=== PATIENT | female | born 1950 | race Caucasian/White ===

== ENCOUNTER 2020-06-17 21:07 | Emergency (ER) | payer MEDICARE, OTHER ==
[2020-06-17 21:35] VITALS: BP 142/73; TEMP 97.9
[2020-06-17 21:58] VITALS: PULSE 99; RESP 18
--- NOTE | 2020-06-17 22:36 | CT ---
EXAMINATION TYPE: CT brain neela sierra con DATE OF EXAM: 06/17/2020 COMPARISON: None HISTORY: fall CT DLP: combined DLP 1138.6 mGycm Automated exposure control for dose reduction was used. Images of the brain and cervical spine were obtained without contrast. FINDINGS: There is subcutaneous hematoma over the frontal bone that measures 9 mm in thickness. The calvarium i s intact. Ventricles have normal size. There is no midline shift. There is no sign of intracranial he morrhage. The cervical vertebra have normal alignment. There is mild narrowing of cervical disc spaces. There i s no compression fracture. The posterior elements are intact. There is multilevel hypertrophic facet arthropathy. The prevertebral soft tissues are intact. Skull base appears intact. There is normal aer ation of the mastoid sinuses. IMPRESSION: Negative CT scan of the brain. Spondylotic changes in the cervical spine. No fracture. Frontal scalp hematoma.
--- NOTE | 2020-06-17 22:59 | CT ---
EXAMINATION TYPE: CT facial bones wo con DATE OF EXAM: 06/17/2020 COMPARISON: None HISTORY: fall CT DLP: combined DLP 1138.6 mGycm Automated exposure control for dose reduction was used. Images obtained from the bottom of the mandible to the top of the frontal sinuses without contrast. The mandibular ring is intact. Temporomandibular joints are intact. Zygomatic arches appear normal. M axilla is intact. There is small mucus retention cyst in the right maxillary sinus. There is no evide nce of a blowout fracture. Orbital margins are intact. There is no evidence of retro-orbital mass. Th ere is preseptal soft tissue swelling around both orbits. There is large frontal scalp hematoma measu ring up to 1 cm in thickness. There is fairly normal aeration of the paranasal sinuses. There is no e vidence of a fracture. Nasal bone appears intact. Frontal bone is intact. IMPRESSION: Periorbital soft tissue swelling. Frontal scalp hematoma. No fracture seen.
--- NOTE | 2020-06-17 23:31 | XR ---
EXAMINATION TYPE: XR humerus RT DATE OF EXAM: 06/17/2020 COMPARISON: NONE HISTORY: Bruising. Pain. TECHNIQUE: 2 views FINDINGS: There is comminuted fracture of the humeral neck. There is no dislocation. The scapula appe ars intact. Elbow joint appears intact. There is 11 mm displacement of the fracture. IMPRESSION: Comminuted humeral neck fracture with 11 mm displacement.
--- NOTE | 2020-06-17 23:33 | XR ---
EXAMINATION TYPE: XR shoulder complete RT DATE OF EXAM: 06/17/2020 COMPARISON: NONE HISTORY: Shoulder pain TECHNIQUE: 3 views FINDINGS: There is comminuted fracture of the humeral neck without dislocation. There is separation o f the fragments up to 15 mm. The scapula appears intact. Clavicle appears intact. IMPRESSION: Comminuted humeral neck fracture without dislocation.
[2020-06-18] MEDS ORDERED: ACET/COD 300 MG/30 MG STARTER PACK 6 TAB BTL PO STA (00:02)
--- NOTE | 2020-06-18 00:02 | ED ---
Fall HPI - General Chief Complaint: Fall Stated Complaint: Fell down Time Seen by Provider: 06/17/20 23:43 Source: patient Mode of arrival: wheelchair - Related Data Allergies Allergy/AdvReac Type Severity Reaction Status Date / Time Sulfa (Sulfonamide AdvReac Rash/Hives Verified 06/17/20 21:35 Antibiotics) Review of Systems ROS Statement: Those systems with pertinent positive or pertinent negative responses have been documented in the HPI. ROS Other: All systems not noted in ROS Statement are negative. Past Medical History Past Medical History: Hypertension History of Any Multi-Drug Resistant Organisms: None Reported Past Surgical History: No Surgical Hx Reported Past Psychological History: No Psychological Hx Reported Smoking Status: Never smoker Past Alcohol Use History: Occasional Past Drug Use History: None Reported General Exam Limitations: no limitations Course Vital Signs 06/17/20 21:32 Temperature 97.9 F Pulse Rate 99 Respiratory 18 Rate Blood Pressure 142/73 O2 Sat by Pulse 98 Oximetry Disposition Clinical Impression: Fall, Head injury, Right humeral fracture Disposition: HOME SELF-CARE Condition: Good Instructions (If sedation given, give patient instructions): Proximal Humerus Fracture (ED) Is patient prescribed a controlled substance at d/c from ED?: No Referrals: Paramjit Munguia DO [Doctor of Osteopathic Medicine] - 1-2 days Renato Munguia DO [Doctor of Osteopathic Medicine] - 1-2 days
== END 2020-06-18 00:22 | disposition home or self-care (01) ==
LOC: EDBD → EC 21:07
DX: S09.90XA Unspecified injury of head, initial encounter (principal); S42.201A Unspecified fracture of upper end of right humerus, initial encounter for closed fracture; I10 Essential (primary) hypertension; W18.30XA Fall on same level, unspecified, initial encounter
CPT/HCPCS: 70450; 70486; 72125; 99284

== ENCOUNTER → 2020-06-22 | Outpatient (CLI) | payer MEDICARE, OTHER ==
[2020-06-22 16:43] LABS: HCT 33.5 % (34.0-46.0); HGB 11.4 gm/dL (11.4-16.0); MCHC 34.2 g/dL (31.0-37.0); MCV 96.5 fL (80.0-100.0); Mean Platelet Volume 6.9; Platelet Count 278 k/uL (150-450); RBC 3.47 m/uL (3.80-5.40); RDW 12.6 % (11.5-15.5); WBC 9.2 k/uL (3.8-10.6)
[2020-06-22 16:44] LABS: Appearance,Urine Clear (Clear); Bilirubin,Urine Negative (Negative); Blood,Urine Negative (Negative); Color,Urine Yellow; Glucose,Urine (UA) Negative (Negative); Ketones,Urine Negative (Negative); Leukocyte Esterase,Urine Moderate (Negative); Mucus,Urine Rare /hpf; Nitrite,Urine Negative (Negative); PH, Urine 5.5 (5.0-8.0); Protein,Urine Negative (Negative); RBC,Urine 1 /hpf (0-5); Specific Gravity,Urine 1.017 (1.001-1.035); Squamous Epithelial Cell,Urine <1 /hpf (0-4); Urobilinogen,Urine <2.0 mg/dL (<2.0); WBC,Urine 4 /hpf (0-5)
[2020-06-22 16:48] LABS: Albumin 4.3 g/dL (3.5-5.0); Potassium 4.1 mmol/L (3.5-5.1); Total Protein 7.5 g/dL (6.3-8.2)
[2020-06-22 16:51] LABS: INR 0.9 (<1.2); Partial Thromboplastin Time 23.6 sec (22.0-30.0); Prothrombin Time 9.8 sec (9.0-12.0)
== END | disposition home or self-care (01) ==
LOC: LABWHC1 14:39
PROVIDERS: ATTEND Orthopaedic Surgery
DX: Z01.812 Encounter for preprocedural laboratory examination (principal); Z01.818 Encounter for other preprocedural examination
CPT/HCPCS: 80053; 81001; 85027; 85610; 85730; 87070

== ENCOUNTER → 2020-07-03 | Day surgery (SDC) | payer MEDICARE, OTHER ==
[2020-06-26 10:25] VITALS: BMI 24.3
[~2020-07-03] MED LIST: ACETAMINOPHEN TAB 500 MG TAB PO PRN; DEXAMETHASONE SOD PHOSPHATE 4 MG/ML 1 ML VIAL IV ONE; GABAPENTIN 300 MG CAP PO PRN; HYDROcodone/APAP 7.5-325MG 1 EACH TAB PO PRN; HYDROmorphone 0.2 MG/1 ML SYRINGE IVP PRN; HYDROmorphone 0.5 MG/0.5 ML SYRINGE IVP PRN; HYDROmorphone 1 MG/ML 1 ML SYRINGE IVP PRN; LACTATED RINGERS 1,000 ML IV ONE; LACTATED RINGERS 1,000 ML IV SCH; LIDOCAINE 1% (10MG/ML) FOR IV START INTRADERMA PRN; MELOXICAM 7.5 MG TAB PO PRN; MIDAZOLAM 2 MG/2 ML VIAL IV PRN; ONDANSETRON 4 MG/2 ML VIAL IVP ONE; ONDANSETRON 4 MG/2 ML VIAL IVP PRN; SODIUM CHLORIDE 0.9% 1,000 ML IV SCH; TRANEXAMIC ACID 1,000 MG in SODIUM CHLORIDE 0.9% 100 ML IVPB PRN; ceFAZolin 1,000 MG in SODIUM CHLORIDE 0.9% 1,000 ML IRRIGATION ONE; fentaNYL (PF) 50 MCG/ML 2 ML AMP IVP PRN
--- NOTE | 2020-07-03 09:10 | P.OP ---
Date of Procedure: 07/03/20 Preoperative Diagnosis: Comminuted and displaced fracture right proximal humerus surgical neck Postoperative Diagnosis: Comminuted and displaced fracture surgical neck right proximal humerus Procedure(s) Performed: Reverse total shoulder arthroplasty Implants: Biomet comprehensive shoulder system, standard humeral stem, 12 mm porous- coated. Biomet comprehensive reverse shoulder system, humeral bearing, 36 mm, standard Biomet comprehensive reverse shoulder system, mini humeral tray, 40 mm, +0 mm, standard Biomet comprehensive reverse shoulder, Glenosphere mini baseplate, 25 mm Biomet comprehensive reverse shoulder, central screw, 6.5 mm x 25 mm Biomet comprehensive reverse shoulder, fixed locking screw, 4.75 x 20 mm, 15 mm, 15 mm, 20 mm. Biomet comprehensive reverse shoulder glenosphere, 36 mm, standard All components were press-fit. Articulation is metal on polyethylene. Anesthesia: GETA Surgeon: Renato Munguia Migrant Leader #1: Lisa Womack Estimated Blood Loss (ml): 50 Pathology: other (Humeral head) Condition: stable Disposition: PACU Indications for Procedure: This is a 70-year-old female missed a step at home and fell onto her right shoulder. She sustained a displaced comminuted fracture of the right surgical neck of the humerus. Due to the significant displacement and comminution I recommended a reverse total shoulder arthroplasty. This was discussed at length with her and informed consent was obtained. Operative Findings: Operative findings are consistent with a displaced comminuted fracture of the surgical neck of the right proximal humerus. Description of Procedure: The patient was seen in the preoperative area, consent was reviewed, and operative site was marked with a skin marker. Patient was then brought to the operating room and given preoperative antibiotics intravenously. Patient was also given 1 g of Tranexamic acid intravenously. A general anesthetic was administered by the anesthesia department. The patient was then placed in a beachchair position with the bony prominences well-padded and the head secured. The shoulder was then prepped and draped in the usual sterile fashion. A universal timeout was then performed, which confirmed the patient's name, surgical site, ALLERGIES, and consent. A standard deltopectoral approach was performed. The skin and subcutaneous tissue was sharply dissected down to the deltoid fascia. The cephalic vein was then identified and retracted medially. The deltopectoral interval was then utilized to expose the subscapularis tendon. A retractor was then placed under the coracobrachialis tendon retracted medially, and the deltoid. The axillary nerve is palpated and protected throughout the procedure. The subscapularis tendon was then released and retracted medially. The humeral head was then exposed easily. The humeral head was found to be 100% displaced from the proximal humerus. Was also found to be rotated 180 from its normal position. The humeral head was then removed. Next the humeral stem was prepared. Using a ruler, the depth of the stem was measured with respect to the humeral head which was removed. This measurement was used throughout preparation of the humeral component. A starter reamer was then placed through the humeral head along the axis of the humeral shaft just lateral to the articular surface and just medial to the rotator cuff attachment. Sequential reaming was performed to the appropriate size reamer was inserted to the #between the 3 and 4 on the reamer. Next the intramedullary resection guide was placed on the reamer shaft. It was placed to the appropriate resection depth and angle of 30 of retroversion. Resection guide block was then secured with Steinmann pins. The proximal humerus was then resected. The block was then removed and the humerus was then broached sequentially to the same size as the reamer. After the broaches fully seated, the broach handle was removed and a broach cover was placed protect the humerus while the glenoid was prepared. Next attention was directed to the glenoid. The appropriate retractors were placed around the glenoid and any remaining soft tissues was removed from around the glenoid. After the glenoid was adequately exposed, the threaded glenoid guide was placed onto the glenoid and a 3.2 mm Steinmann pin was inserted in the glenoid at the desired angle and position, ensuring the pin engaged medial cortical wall. Next, the cannulated baseplate reamer was placed over the top of the Steinmann pin. The glenoid was then reamed to the appropriate depth. The glenoid reamer was then removed, leaving the Steinmann pin. The glenoid Keny plate implant was placed on the end of the cannulated baseplate impactor. The baseplate was then impacted fully into the glenoid. Next the 6.5 mm central screw was then placed which afforded excellent fixation. The 4 peripheral locking screws were then drilled measured and placed. Next the appropriate glenosphere was opened and impacted into the glenoid baseplate. Attention was then redirected to the humerus. Next a trial humeral tray was placed in the shoulder was reduced. Shoulder was taken through a full range of motion and found to be stable. The shoulder was then gently dislocated, and the trial humerus and humeral tray were removed. The final humeral stem was impacted in the final humeral tray was impacted as well. Shoulder was then relocated. Again the shoulder was taken through a range of motion and found to have no instability. Shoulder was then irrigated with pulsatile lavage. The shoulder was then irrigated with Irrisept solution. The subscapularis was then repaired with #1 Vicryl. The deltopectoral interval was then closed with #1 Vicryl as well. The subcutaneous tissues were closed with 2-0 Vicryl then 30 strata fix. Exofin glue was placed on the skin. A sterile silver impregnated dressing was then applied, the patient was transported to the recovery room in an arm sling in stable condition. The nursing assistant DARRYN Chappell was required due the complexity of surgery and the need for a skilled surgical services director.
[2020-07-03 09:13] VITALS: TEMP 97.6
--- NOTE | 2020-07-03 10:51 | P.ANPRN ---
Procedure Note - Anesthesia - Nerve Block Performed Right Interscalene Single Time Out Performed: Yes Date of Procedure: 07/03/20 Procedure Start Time: Procedure Stop Time: Location of Patient: PreOp Indication: Requested by Surgeon Specifically requested for management of pain by DrGia: Renato Munguia Sedation Type: Sedate with meaningful contact maintained Preparation: Sterile Prep Position: Supine Needle Types: Pajunk Needle Gauge: 21 Ultrasound used to visualize needle placement: Yes Ultrasound used to observe medication spread: Yes Injectate: 0.5% Ropivacaine (see comment for volume) (20 ml) Blood Aspirated: No Pain Paresthesia on Injection Noted: No Resistance on Injection: Normal Image Stored and Saved: Yes Events: Uneventful and Well Tolerated
[2020-07-03 11:27] VITALS: RESP 16
[2020-07-03 13:00] VITALS: BP 129/76; PULSE 89
--- NOTE | 2020-07-03 13:16 | XR ---
EXAMINATION TYPE: XR shoulder limited RT DATE OF EXAM: 07/03/2020 COMPARISON: NONE HISTORY: Postop TECHNIQUE: One view is submitted. FINDINGS: Postsurgical change noted. Tubing or drain overlying the soft tissues. Soft tissue edema and emphysem a noted. Postsurgical change in near anatomic alignment. Arthropathy of the AC joint. IMPRESSION: 1. Postoperative change
== END | disposition home or self-care (01) ==
LOC: OR 05:31
PROVIDERS: ATTEND Orthopaedic Surgery
DX: S42.211A Unspecified displaced fracture of surgical neck of right humerus, initial encounter for closed fracture (principal); M19.011 Primary osteoarthritis, right shoulder; I10 Essential (primary) hypertension; E78.5 Hyperlipidemia, unspecified; M17.0 Bilateral primary osteoarthritis of knee; H35.30 Unspecified macular degeneration; Z79.899 Other long term (current) drug therapy; Z88.2 Allergy status to sulfonamides; X58.XXXA Exposure to other specified factors, initial encounter
CPT/HCPCS: 64415; 76942; 88305; 88311; 73020; 23472; C1713; C1776; J1100; J0690 ×2; J2405

== ENCOUNTER 2022-01-16 09:47 | Emergency (ER) | payer MEDICARE, OTHER ==
[2022-01-16 09:59] VITALS: RESP 18
--- NOTE | 2022-01-16 10:35 | ED ---
General Adult HPI - General Chief complaint: Syncope Stated complaint: fall Time Seen by Provider: 01/16/22 10:06 Source: patient, RN notes reviewed, old records reviewed Mode of arrival: ambulatory Limitations: no limitations - History of Present Illness Initial comments: 71-year-old female presents to the emergency room with complaints of syncopal episode while she was choking on coffeecake and water. Patient states that she was sitting and fell forward hitting her face on a whiteboard shelf. She states that she woke up to staff around her with a bloody nose. Denies any chest pain or difficulty in breathing. Denies any other injuries. She states that she was not down for a long period of time. Has history of hypertension no other medical problems. She is ambulatory with steady gait. -: hour(s) Location: face Radiation: non-radiation Severity scale (1-10): 6 Quality: aching Consistency: constant Improves with: none Worsens with: none Associated Symptoms: denies other symptoms Treatments Prior to Arrival: none - Related Data Home Medications Medication Instructions Recorded Confirmed Atorvastatin [Lipitor] 20 mg PO DAILY 06/27/20 06/27/20 Cholecalciferol [Vitamin D3 (25 25 mcg PO DAILY 06/27/20 06/27/20 Mcg = 1000 Iu)] Lisinopril-Hctz 20-25 mg 1 tab PO QAM 06/27/20 06/27/20 [Zestoretic 20-25] Vit C/E/Zn/Coppr/Lutein/Zeaxan 1 each PO BID 06/27/20 06/27/20 [Preservision Areds 2 Softgel] Previous Rx's Medication Instructions Recorded Celecoxib [CeleBREX] 200 mg PO DAILY 5 Days #5 capsule 07/03/20 HYDROcodone/APAP 7.5-325MG [Galloway 1 - 2 tab PO Q6H PRN #32 tab 07/03/20 7.5-325] Ondansetron Odt [Zofran Odt] 1 tab PO Q8HR PRN #10 tab 07/03/20 Sennosides [Senokot] 2 tab PO DAILY PRN #60 tablet 07/03/20 Allergies Allergy/AdvReac Type Severity Reaction Status Date / Time Sulfa (Sulfonamide AdvReac Rash/Hives Verified 01/16/22 09:59 Antibiotics) Patient : No Review of Systems ROS Statement: Those systems with pertinent positive or pertinent negative responses have been documented in the HPI. ROS Other: All systems not noted in ROS Statement are negative. Past Medical History Past Medical History: Hypertension History of Any Multi-Drug Resistant Organisms: None Reported Past Surgical History: Orthopedic Surgery Past Psychological History: No Psychological Hx Reported Smoking Status: Never smoker Past Alcohol Use History: Occasional Past Drug Use History: None Reported General Exam Limitations: no limitations General appearance: alert, in no apparent distress Head exam: Present: normocephalic Expanded Head exam: Present: abrasion (nose), contusion (nose), hematoma (left eye). Absent: tenderness of temporal artery, CSF rhinorrhea, CSF otorrhea Eye exam: Present: normal appearance, EOMI. Absent: scleral icterus, conjunctival injection ENT exam: Present: normal exam, normal oropharynx, mucous membranes moist Neck exam: Present: normal inspection, full ROM. Absent: tenderness, meningismus, lymphadenopathy, thyromegaly Respiratory exam: Absent: respiratory distress, accessory muscle use Cardiovascular Exam: Present: regular rate Extremities exam: Present: full ROM, normal capillary refill. Absent: tenderness, pedal edema, calf tenderness Neurological exam: Present: alert, oriented X3, CN II-XII intact, normal gait Psychiatric exam: Present: normal affect, normal mood Skin exam: Present: warm, dry. Absent: cyanosis, diaphoretic, pallor, mottled Course Vital Signs 01/16/22 01/16/22 09:54 12:43 Temperature 98 F 97.6 F Pulse Rate 77 78 Respiratory 18 18 Rate Blood Pressure 165/77 124/66 O2 Sat by Pulse 99 99 Oximetry EKG Findings - EKG Results: EKG: sinus rhythm (Ventricular rate 66, ME interval 0.187, QRS 0.102, QTC 0.391; normal axis; no old to compare) Medical Decision Making - Medical Decision Making Patient presents to the emergency room after a syncopal episode after coughing/choking spell this morning. States fell forward from sitting hitting her face on a shelf. Denies any dizziness, chest pain or difficulty breathing. Denies any other injuries. CT facial bones shows an acute nondisplaced right nasal bone fracture with soft tissue swelling. CT brain and C-spine show no acute intracranial abnormality. No fracture or malalignment of the cervical spine. Chest x-ray shows no acute cardiopulmonary process. EKG shows sinus rhythm Vital signs are stable. Patient is up ambulating with steady gait. No other complaints of pain or discomfort. She was offered pain medication and declined. She was instructed to use ice and Tylenol and Motrin for pain and swelling. Nasal saline spray and follow up with ENT and her primary care doctor this week. She is agreeable to this plan of care. Case discussed with Dr. Estrada Disposition Clinical Impression: Vasovagal syncope, Nasal bone fracture Disposition: HOME SELF-CARE Condition: Good Instructions (If sedation given, give patient instructions): Nasal Fracture (ED), Syncope in Older Adults (ED) Additional Instructions: Take Tylenol as needed for pain or discomfort. Ice to decrease swelling. Follow-up with Dr. Goodman for continuation of care of the nasal bone fracture. Use nasal saline throughout the day. Do not blow your nose. If bleeding recurs hold for pressure for 15 minutes. If unable to control bleeding return to the emergency room. Return to the emergency room with any new or concerning symptoms. Is patient prescribed a controlled substance at d/c from ED?: No Referrals: Brii Gaxiola III, MD [Primary Care Provider] - 1-2 days Rudy Goodman MD [STAFF PHYSICIAN] - 1-2 days Time of Disposition: 12:01
--- NOTE | 2022-01-16 11:32 | CT ---
EXAMINATION TYPE: CT facial bones wo con CT DLP: Included in brain mGycm, Automated exposure control for dose reduction was used. DATE OF EXAM: 01/16/2022 11:08 AM COMPARISON: CT facial bones 06/17/2020. CLINICAL INDICATION:Female, 71 years old with history of fall face injury; PHH, Fall, bruising to lef t cheek and nose TECHNIQUE: Multiple unenhanced axial CT images were obtained of the facial bones soft tissue and bone windows. Coronal, axial and sagittal reformatted images were also provided in soft tissue and bone windows and submitted for interpretation. FINDINGS: Dental amalgam streak artifact which limits evaluation. Nondisplaced right nasal bone fracture (series 211, image 21). Soft tissue swelling of the left cheek and nose. The orbital contents are intact. Both lenses are surgical absent. The temporal-mandibular joints appear symmetric. The visualized portion of the paranasal sinuses appear clear. Nasal septal deviation to the right. IMPRESSION: 1. Acute nondisplaced right nasal bone fracture. 2. Left cheek and nasal soft tissue swelling.
--- NOTE | 2022-01-16 11:34 | XR ---
EXAMINATION TYPE: XR chest 2V DATE OF EXAM: 01/16/2022 COMPARISON: NONE HISTORY: Syncope after choking TECHNIQUE: Frontal and lateral views of the chest are obtained. FINDINGS: Patient is rotated. There is no focal air space opacity, pleural effusion, or pneumothorax seen. The cardiac silhouette size is within normal limits. The osseous structures are intact, post op change noted to the right shoulder with some acromioclavicular joint arthropathy bilaterally, thor acic spondylosis is noted. IMPRESSION: No acute cardiopulmonary process.
--- NOTE | 2022-01-16 11:34 | CT ---
EXAMINATION TYPE: CT brain neela sierra con DATE OF EXAM: 01/16/2022 COMPARISON: 06/17/2020 HISTORY: 71-year-old female Fall, bruising to left cheek and nose CT DLP: 976.3 mGycm Automated exposure control for dose reduction was used. Technique: Examination of the head was done in axial plane without intravenous contrast. Coronal and sagittal reconstructions performed. CT of the cervical spine was obtained in axial plane without intravenous injection of contrast mater ial. Coronal and sagittal reformatted images were obtained from the axial views for evaluation of f ractures, spinal alignment and canal. FINDINGS: Head: There is no evidence of acute intracranial hemorrhage, acute ischemic changes, mass, mass-effect, or extra-axial fluid collection. There is no effacement of cerebral sulci or basal subarachnoid cister ns. There is no hydrocephalus. There is no midline shift. Lomeli-white matter distinction is preserv ed. Benign basal ganglionic calcifications. Mild periventricular white matter hypodensities suggesting ch anges of chronic small vessel ischemic disease. Mastoid air cells well pneumatized. No calvarial fracture seen. Facial bones reported separately. Right-sided nasal bone fracture will be described separately. Cervical spine: No craniocervical junction abnormality, predental space widening, or prevertebral soft tissue swellin g. Degenerative change of the C1 dens articulation. There is preserved alignment of the cervical spine though with straightening of the normal cervical l ordosis. Moderate distention plate degenerative changes present from C3 through T1 levels with disc space narr owing and discussed by complex formation. This contributes to variable mild spinal canal narrowing throughout. Assessment of the spinal canal f rom C6 and below is limited due to artifact from the patient's shoulders. Scattered facet and uncovertebral joint arthropathy is also present. No acute fracture of the cervical spine. At C3-C4, changes result in mild right neuroforaminal stenosis. At C4-C5, change result in [id number] bilateral neural foraminal narrowing. At C5-C6 foraminal changes result in moderate to severe left and moderate right neural foraminal sten osis. At C6-C7, T1 result in moderate left and mild right neuroforaminal stenosis. Sagittal and coronal reformatted images confirm above findings. COMBINED IMPRESSION: 1. No acute intracranial abnormality seen. 2. No acute fracture or malalignment of the cervical spine. Moderate spondylotic change as outlined a isai. 3. Facial bones reported separately.
[2022-01-16] MEDS ORDERED: ACETAMINOPHEN TAB 500 MG TAB PO STA (12:00)
[2022-01-16 12:45] VITALS: BP 124/66; PULSE 78; TEMP 97.6
== END 2022-01-16 12:44 | disposition home or self-care (01) ==
LOC: EC 09:47
DX: S02.2XXA Fracture of nasal bones, initial encounter for closed fracture (principal); R55 Syncope and collapse; I10 Essential (primary) hypertension; Z88.2 Allergy status to sulfonamides; Z79.899 Other long term (current) drug therapy; W01.198A Fall on same level from slipping, tripping and stumbling with subsequent striking against other object, initial encounter
CPT/HCPCS: 70450; 70486; 71046; 72125; 99284

== ENCOUNTER 2022-04-19 13:46 | Emergency (ER) | payer MEDICARE, OTHER ==
[2022-04-19] MEDS ORDERED: KETOROLAC 15 MG/ML 1 ML VIAL IM STA (14:13)
--- NOTE | 2022-04-19 14:14 | ED ---
General Adult HPI - General Chief complaint: Fall Stated complaint: fall Time Seen by Provider: 04/19/22 14:05 Source: patient, family, RN notes reviewed Mode of arrival: ambulatory Limitations: no limitations - History of Present Illness Initial comments: 71-year-old female with no significant past medical history presents to the emergency Department chief complaint of fall. She notes that she was walking on the sidewalk and tripped on the curb and fell onto her face. She denies any loss of consciousness or anticoagulant use. She denies any dizziness, lightheadedness, headache, vision changes, chest pain, palpitations, shortness of breath. She has not taken anything for the pain. - Related Data Home Medications Medication Instructions Recorded Confirmed Lisinopril-Hctz 20-25 mg 1 tab PO DAILY 06/27/20 04/19/22 [Zestoretic 20-25] Vit C/E/Zn/Coppr/Lutein/Zeaxan 1 cap PO BID 06/27/20 04/19/22 [Preservision Areds 2 Softgel] Naproxen Sodium [Aleve] 220 mg PO BID 04/19/22 04/19/22 Allergies Allergy/AdvReac Type Severity Reaction Status Date / Time Sulfa (Sulfonamide AdvReac Rash/Hives Verified 04/19/22 15:10 Antibiotics) Review of Systems ROS Statement: Those systems with pertinent positive or pertinent negative responses have been documented in the HPI. ROS Other: All systems not noted in ROS Statement are negative. Past Medical History Past Medical History: Hypertension History of Any Multi-Drug Resistant Organisms: None Reported Past Surgical History: Orthopedic Surgery Past Psychological History: No Psychological Hx Reported Smoking Status: Never smoker Past Alcohol Use History: Occasional Past Drug Use History: None Reported General Exam Limitations: no limitations General appearance: alert, in no apparent distress Head exam: Present: atraumatic, normocephalic, normal inspection Eye exam: Present: normal appearance, PERRL, EOMI. Absent: scleral icterus, conjunctival injection, periorbital swelling ENT exam: Present: normal exam, mucous membranes moist Neck exam: Present: normal inspection. Absent: tenderness, meningismus, lymphadenopathy Respiratory exam: Present: normal lung sounds bilaterally. Absent: respiratory distress, wheezes, rales, rhonchi, stridor Cardiovascular Exam: Present: regular rate, normal rhythm, normal heart sounds. Absent: systolic murmur, diastolic murmur, rubs, gallop, clicks GI/Abdominal exam: Present: soft, normal bowel sounds. Absent: distended, tenderness, guarding, rebound, rigid Extremities exam: Present: normal inspection, full ROM, normal capillary refill. Absent: tenderness, pedal edema, joint swelling, calf tenderness Back exam: Present: normal inspection Neurological exam: Present: alert, oriented X3, CN II-XII intact Psychiatric exam: Present: normal affect, normal mood Skin exam: Present: warm, dry, intact, normal color. Absent: rash Course Vital Signs 04/19/22 04/19/22 04/19/22 13:56 14:25 16:09 Temperature 97.5 F L 97.9 F Pulse Rate 72 61 75 Respiratory 20 18 18 Rate Blood Pressure 134/72 104/66 110/70 O2 Sat by Pulse 100 100 98 Oximetry Medical Decision Making - Medical Decision Making Was pt. sent in by a medical professional or institution (, PA, SLIPMAN, urgent care, hospital, or custodial...) When possible be specific @ -[No] Did you speak to anyone other than the patient for history (EMS, parent, family, police, friend...)? What history was obtained from this source @ -[No] Did you review nursing and triage notes (agree or disagree)? Why? @ -[I reviewed and agree with nursing and triage notes] Were old charts reviewed (outside hosp., previous admission, EMS record, old EKG, old radiological studies, urgent care reports/EKG's, custodial records)? Report findings @ -[No old charts were reviewed] Differential Diagnosis (chest pain, altered mental status, abdominal pain women, abdominal pain men, vaginal bleeding, weakness, fever, dyspnea, syncope, headache, dizziness, GI bleed, back pain, seizure, CVA, palpatations, mental health)? @ -[not applicable] EKG interpreted by me (3pts min.). @ -[As above] X-rays interpreted by me (1pt min.). @ -[None done] CT interpreted by me (1pt min.). @ -Negative for any intracranial hemoorrhage, however reveals a septal bone fracture. U/S interpreted by me (1pt. min.). @ -[None done] What testing was considered but not performed or refused? (CT, X-rays, U/S, labs)? Why? @ -[None] What meds were considered but not given or refused? Why? @ -[None] Did you discuss the management of the patient with other professionals (professionals i.e. , PA, SLIPMAN, lab, RT, psych nurse, neonatal social worker, family lawyer, teacher, special officer, major case detective)? Give summary @ -[No] Was smoking cessation discussed for >3mins.? @ -[No] Was critical care preformed (if so, how long)? @ -[No] Were there social determinants of health that impacted care today? How? (Homelessness, low income, unemployed, alcoholism, drug addiction, transportation, low edu. Level, literacy, decrease access to med. care, long term, re hab)? @ -[No] Was there de-escalation of care discussed even if they declined (Discuss DNR or withdrawal of care, Hospice)? DNR status @ -[No] What co-morbidities impacted this encounter? (DM, HTN, Smoking, COPD, CAD, Cancer, CVA, ARF, Chemo, Hep., AIDS, mental health diagnosis, sleep apnea, morbid obesity)? @ -[None] Was patient admitted / discharged? Hospital course, mention meds given and route, prescriptions, significant lab abnormalities, going to OR and other pertinent info. @ -71-year-old female presents to the emergency department with fall. Patient had a thorough history and physical performed. Physical exam reveals heart rate regular rate and rhythm, lungs clear to auscultation bilaterally abdomen is soft and nontender. Her incision sites appear well healed. . imaging was essentially unremarkable with septum fracture. I discussed the results in detail with the patient, patient verbalized understanding and all questions were addressed. Return precautions were discussed. She follow-up with her primary care in 1-2 days and given a referral for Dr. Goodman, ENT. The patient was discharged in stable condition. I discussed the case with Dr. Goins Cynthia who agrees with the plan of care Undiagnosed new problem with uncertain prognosis? @ -[No] Drug Therapy requiring intensive monitoring for toxicity (Heparin, Nitro, Insulin, Cardizem)? @ -[No] Were any procedures done? @ -[No] Diagnosis/symptom? @ -nasla bone fx Acute, or Chronic, or Acute on Chronic? @ -acute Uncomplicated (without systemic symptoms) or Complicated (systemic symptoms)? @ -uncomplicated Side effects of treatment? @ -[No] Exacerbation, Progression, or Severe Exacerbation? @ -[No] Poses a threat to life or bodily function? How? (Chest pain, [place], [place], pneumonia, PE, COPD, DKA, ARF, appy, cholecystitis, CVA, Diverticulitis, Homicidal, Suicidal, threat to staff... and all critical care pts) @ -[No] Disposition Clinical Impression: Fall, Contusion, Abrasion of face Disposition: HOME SELF-CARE Condition: Stable Instructions (If sedation given, give patient instructions): Abrasion (ED), Fall Prevention (ED) Additional Instructions: Return to the nearest emergency department if symptoms worsen or persist. Is patient prescribed a controlled substance at d/c from ED?: No Referrals: Brii Gaxiola III, MD [Primary Care Provider] - 1-2 days Rudy Goodman MD [STAFF PHYSICIAN] - 1-2 days Time of Disposition: 15:51
[2022-04-19 14:26] VITALS: RESP 18
--- NOTE | 2022-04-19 15:24 | CT ---
EXAMINATION TYPE: CT facial bones wo con CT DLP: Combined DLP of 1149.9 mGycm, Automated exposure control for dose reduction was used. DATE OF EXAM: 04/19/2022 3:00 PM COMPARISON: CT head and cervical spine 04/19/2022, CT facial bone 01/16/2022, CT brain cervical spine 01/16/2022. CLINICAL INDICATION:Female, 71 years old with history of fall; [facility], Fall on ice. Abrasion on nose and hematoma on forehead. No LOC. TECHNIQUE: Multiple unenhanced axial CT images were obtained of the facial bones soft tissue and bone windows. Coronal, axial and sagittal reformatted images were also provided in soft tissue and bone windows and submitted for interpretation. FINDINGS: Redemonstration of rightward displacement of the septum (series 207, image 56), however there is new onset of edema within the nasal turbinates. No additional acute facial bone fractures, subluxations o r dislocations noted. Left frontal scalp hematoma present. The orbital contents are unremarkable.Bronwyn gical absence of the lenses bilaterally. The temporal-mandibular joints appear symmetric. The visuali zed portion of the paranasal sinuses appear clear. IMPRESSION: 1. Edematous appearance of the nasal turbinates with rightward deviation of the nasal septum, concern ing for acute on chronic nasal septum fracture. 2. Left frontal scalp hematoma.
--- NOTE | 2022-04-19 15:24 | CT ---
EXAMINATION TYPE: CT brain cspine wo con CT DLP: Combined DLP of 1149.9 mGycm, Automated exposure control for dose reduction was used. DATE OF EXAM: 04/19/2022 3:00 PM COMPARISON: CT facial bone 04/19/2022, CT facial bone 01/16/2022, CT brain and cervical spine 01/17/20 22. CLINICAL INDICATION:Female, 71 years old with history of fall; fall on ice. Abrasion on nose and agustin yamile on forehead. No LOC. TECHNIQUE: Brain: Multiple axial CT images of the brain were obtained without IV contrast. Cspine: Axial CT images from the skull base to the inferior aspect of T2 we obtained without intraven ous contrast. Coronal and sagittal reformatted images were also reviewed. FINDINGS: Brain: Extra-axial spaces: No abnormal extra-axial fluid collections. Ventricular system: Within normal limits Cerebral parenchyma: No acute intraparenchymal hemorrhage or mass effect. The flores-white junction is well differentiated. Cerebellum: Unremarkable. Mass effect: No evidence of midline shift. Intracranial vasculature: Atherosclerotic calcifications of the intracranial vessels. Soft tissues: Left frontal scalp hematoma and surrounding soft tissue swelling series 201, image 21). Calvarium/osseous structures: No depressed skull fracture. Paranasal sinuses and mastoid air cells: Rightward deviation of the nasal septum with edematous appea johnna of the nasal turbinates (series 205, image 10) Visualized orbits: Bilateral aphakia Cervical spine: Fracture: None. Osseous structures: Unremarkable Vertebral alignment: Within normal limits. Spinal canal/Neural Foramina: Disc osteophyte complexes at C3-C4, C4-C5 and C5-C6 with at least mild spinal canal stenosis. Facet joint uncovertebral joint arthropathy scattered throughout the cervical spine with varying degrees of neural foraminal stenosis. Neck soft tissues: Prevertebral soft tissues are within normal limits. Other: The airway is patent. The lung apices are clear. IMPRESSION: 1. No acute intracranial process or cervical spine fracture. 2. Left frontal scalp hematoma. 3. Edematous nasal turbinates with rightward deviation of nasal septum concerning for acute on chroni c fracture. 4. Mild degenerative changes of the cervical spine
[2022-04-19 16:11] VITALS: BP 110/70; PULSE 75; TEMP 97.9
== END 2022-04-19 16:11 | disposition home or self-care (01) ==
LOC: EC 13:46
DX: S00.03XA Contusion of scalp, initial encounter (principal); S00.31XA Abrasion of nose, initial encounter; J34.2 Deviated nasal septum; M47.812 Spondylosis without myelopathy or radiculopathy, cervical region; I10 Essential (primary) hypertension; Z79.899 Other long term (current) drug therapy; Z88.2 Allergy status to sulfonamides; W01.0XXA Fall on same level from slipping, tripping and stumbling without subsequent striking against object, initial encounter; Y93.01 Activity, walking, marching and hiking; Y92.480 Sidewalk as the place of occurrence of the external cause
CPT/HCPCS: 70450; 70486; 72125; 99284

== ENCOUNTER → 2023-04-04 | Outpatient (CLI) | payer MEDICARE, OTHER ==
[2023-04-04 09:30] LABS: INR 0.9 (<1.2); Partial Thromboplastin Time 25.9 sec (22.0-30.0); Prothrombin Time 10.1 sec (10.0-12.5)
[2023-04-04 13:56] LABS: HCT 41.6 % (37.2-46.3); HGB 13.5 g/dL (12.0-15.0); MCH 31.7 pg (27.0-32.0); MCHC 32.5 g/dL (32.0-37.0); MCV 97.7 FL (80.0-97.0); Mean Platelet Volume 9.8 FL (9.5-12.2); NRBC Per 100 WBC 0 X 10*3/uL (0.00-0.01); Platelet Count 280 X 10*3/uL (140-440); RBC 4.26 X 10*6/uL (4.10-5.20); RDW 13.2 % (11.5-14.5); WBC 5.76 X 10*3/uL (4.50-10.00)
[2023-04-04 14:06] LABS: ALT 12 U/L (8-44); AST 19 U/L (13-35); Albumin 4.6 g/dL (3.8-4.9); Albumin/Globulin Ratio 1.59 Ratio (1.60-3.17); Alkaline Phosphatase 69 U/L (41-126); BUN/Creat Ratio 34.56 Ratio (12.00-20.00); Blood Urea Nitrogen 31.1 mg/dL (9.0-27.0); Calcium 10.9 mg/dL (8.7-10.3); Carbon Dioxide 26.6 mmol/L (21.6-31.8); Chloride 102 mmol/L (96-109); Globulin 2.9 g/dL (1.6-3.3); Glucose 92 mg/dL (70-110); Potassium 4.6 mmol/L (3.5-5.5); Sodium 140 mmol/L (135-145); Total Bilirubin 0.5 mg/dL (0.3-1.2); Total Protein 7.5 g/dL (6.2-8.2)
== END | disposition home or self-care (01) ==
LOC: LABPAT 08:03
PROVIDERS: ATTEND Orthopaedic Surgery
DX: Z01.812 Encounter for preprocedural laboratory examination (principal); M17.11 Unilateral primary osteoarthritis, right knee; Z22.322 Carrier or suspected carrier of Methicillin resistant Staphylococcus aureus
CPT/HCPCS: 80053; 85027; 85610; 85730; 87070

== ENCOUNTER → 2023-05-06 | Outpatient (CLI) | payer MEDICARE, OTHER ==
[2023-05-06 07:43] LABS: INR 0.9 (<1.2); Partial Thromboplastin Time 25.4 sec (22.0-30.0); Prothrombin Time 10.1 sec (10.0-12.5)
[2023-05-06 11:11] LABS: HCT 37.7 % (37.2-46.3); HGB 12.4 g/dL (12.0-15.0); MCH 32.2 pg (27.0-32.0); MCHC 32.9 g/dL (32.0-37.0); MCV 97.9 FL (80.0-97.0); Mean Platelet Volume 9.6 FL (9.5-12.2); NRBC Per 100 WBC 0 X 10*3/uL (0.00-0.01); Platelet Count 293 X 10*3/uL (140-440); RBC 3.85 X 10*6/uL (4.10-5.20); RDW 13.5 % (11.5-14.5)
[2023-05-06 12:37] LABS: ALT 14 U/L (8-44); AST 21 U/L (13-35); Albumin 4.6 g/dL (3.8-4.9); Albumin/Globulin Ratio 1.64 Ratio (1.60-3.17); Alkaline Phosphatase 77 U/L (41-126); Calcium 10.4 mg/dL (8.7-10.3); Chloride 102 mmol/L (96-109); Globulin 2.8 g/dL (1.6-3.3); Glucose 103 mg/dL (70-110); Potassium 4.6 mmol/L (3.5-5.5); Sodium 141 mmol/L (135-145); Total Bilirubin 0.5 mg/dL (0.3-1.2); Total Protein 7.4 g/dL (6.2-8.2)
== END | disposition home or self-care (01) ==
LOC: LABPAT 06:47
PROVIDERS: ATTEND Orthopaedic Surgery
DX: Z01.812 Encounter for preprocedural laboratory examination (principal)
CPT/HCPCS: 36415; 80053; 85027; 85610; 85730; 87070

== ENCOUNTER → 2023-05-18 | Day surgery (SDC) | payer MEDICARE, OTHER ==
[2023-04-28 12:05] VITALS: BMI 25.8
[~2023-05-18] MED LIST changes: -DEXAMETHASONE SOD PHOSPHATE 4 MG/ML 1 ML VIAL IV ONE; +HYDROmorphone (PF) 1 MG/ML ONE; -HYDROmorphone 0.2 MG/1 ML SYRINGE IVP PRN; -HYDROmorphone 1 MG/ML 1 ML SYRINGE IVP PRN; -LACTATED RINGERS 1,000 ML IV ONE; -LACTATED RINGERS 1,000 ML IV SCH; +LIDOCAINE 1% INJ 10MG/ML (20 ML MDV) ONE; +MAGNESIUM HYDROXIDE 2,400 MG/30 ML CUP PO PRN; -MIDAZOLAM 2 MG/2 ML VIAL IV PRN; +NALOXONE 0.4 MG/ML 1 ML VIAL IV PRN; +PROPOFOL 10 MG/ML 20 ML VIAL IV ONE; +ROPIVACAINE 5 MG/ML 30 ML VIAL ONE; +SENNOSIDES-DOCUSATE SODIUM 1 EACH TAB PO SCH; +SODIUM CHLORIDE 0.9% (PF) 10 ML VIAL ONE; +SUCCINYLCHOLINE CHLORIDE 200 MG/10 ML VIAL IV ONE; +TRANEXAMIC 1,000 MG/100ML-NACL 1,000 MG in SALINE 1 100ML.BAG IVPB PRN; +TRANEXAMIC 1,000 MG/100ML-NACL PREMIX BAG ONE; -TRANEXAMIC ACID 1,000 MG in SODIUM CHLORIDE 0.9% 100 ML IVPB PRN; -ceFAZolin 1,000 MG in SODIUM CHLORIDE 0.9% 1,000 ML IRRIGATION ONE; +droPERidol 5 MG/2 ML VIAL IVP ONE; +ePHEDrine 50 MG/ML 1 ML VIAL ONE; -fentaNYL (PF) 50 MCG/ML 2 ML AMP IVP PRN; +fentaNYL (PF) 50 MCG/ML 2 ML AMP ONE
[2023-05-18] MEDS: LACTATED RINGERS 1,000 ML IV SCH (06:15)
[2023-05-18] MEDS: ACETAMINOPHEN TAB 500 MG TAB PO PRN (06:20)
[2023-05-18] MEDS: ONDANSETRON 4 MG/2 ML VIAL ONE (06:20)
[2023-05-18] MEDS: MELOXICAM 7.5 MG TAB PO PRN (06:20)
[2023-05-18] MEDS: DEXAMETHASONE SOD PHOSPHATE 4 MG/ML 1 ML VIAL IVP ONE (06:20)
[2023-05-18] MEDS: GABAPENTIN 300 MG CAP PO PRN (06:20)
[2023-05-18] MEDS: MIDAZOLAM 2 MG/2 ML VIAL IVP ONE (06:34)
[2023-05-18] MEDS: ceFAZolin 1,000 MG in SODIUM CHLORIDE 0.9% 1,000 ML IRRIGATION ONE (07:23)
[2023-05-18] MEDS: LACTATED RINGERS 1,000 ML IV ONE (08:12)
--- NOTE | 2023-05-18 08:14 | P.OP ---
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 Procedure(s) Performed: Right total knee arthroplasty Implants: [employer]hew Journey II CR Oxinium cruciate retaining femoral component size 6, right [employer] Journey nonporous tibial baseplate size 5, right [employer] Journey II, Constrained articular insert, size 9 mm, Size 5-6, right [employer] Journey Cassi II resurfacing patellar component, oval, 32 mm All components were cemented using Palacos R bone cement The articulation is Oxinium on polyethylene Anesthesia: ULISES Surgeon: Renato Mung[employer] Contractor #1: Lisa Womack Estimated Blood Loss (ml): 30 Pathology: none sent Condition: stable Disposition: PACU Indications for Procedure: The patient's knee is end-stage, and conservative management has failed. The operation of knee replacement has been discussed at length in the office, as well as potential risks and complications. These are inclusive of, but not limited to: Infection, bleeding, scarring, discomfort, stiffness, blood vessel and nerve damage, need for further surgery, failure to relieve symptoms, persis tence, recurrence, or worsening of problems, loosening, dislocation, wear, blood clot, pulmonary embolism, , gait dysfunction, stiffness, and other risks as discussed in the office. Patient elects to proceed and the consent form has been signed. Operative Findings: The operative findings are consistent with severe osteoarthritis of the right knee with a valgus deformity Description of Procedure: The patient was seen in the preoperative area, the consent was reviewed and the operative site was marked with a skin marker. The patient verified the procedure and the operative site. An adductor canal pain catheter and an iPACK block were placed by anesthesia in the preoperative area. The patient was then brought to the operating room and positioned on the operating room table in the supine position. Preoperative antibiotics and a gram of tranexamic acid were given intravenously. A general anesthetic was administered by the anesthesia department. Care was taken to make sure that all pressure points were adequately padded. A tourniquet was placed on the upper thigh and the lower extremity was prepped with ChloraPrep and draped in usual sterile fashion. A universal time-out was then performed which confirmed the patient's name, surgical site, ALLERGIES, and consent. The lower extremity was then exsanguinated and tourniquet was inflated to 250 mmHg. A standard anterior midline approach to the knee was performed. The skin and subcutaneous tissue were sharply dissected down to the patellar tendon. A medial parapatellar arthrotomy was then performed. The knee was then extended, the patellar was everted, and the knee was flexed. The infra-patellar fat pad was removed in order to enhance exposure. The anterior horns of both menisci were excised, and a release was performed to the posterior medial aspect of the knee. On gross visual inspection, there was complete loss of articular cartilage in the medial and patellofemoral joint spaces. There was also significant cartilage damage in the lateral compartment. There were multiple periarticular osteophytes globally about the knee which were then removed with a Ronguer. The femoral canal was then opened with the 9.5 mm intramedullary drill. The 8 mm intramedullary therese was then inserted into the femoral canal with the distal femoral cutting guide set for 5 of valgus. The distal femoral cutting block was then pinned in place. The intramedullary therese was then removed, and the distal femur was then cut. The cutting block was then removed and the cut was checked for symmetry. The resected bone was then measured to confirm the appropriate distal femoral resection. Next, the sizing guide was then placed and set for 3 external rotation based off of the epicondylar axis and Rand's line. Pins were then placed and the drill holes, and the femur was sized with the sizing stylus. The pins were then removed, and the sizing guide was then removed. The spikes of the appropriate size femoral block was then placed into the predrilled holes, and malleted into place. Two 45 mm pins were then placed into the fixation holes on the cutting block. An gladis wing was then used to ensure there would be no notching with the anterior cut. The anterior condyles were cut without notching. The anterior chord cut was then performed, followed by the posterior cut, posterior chamfer cut, and the anterior chamfer cut. The collateral ligaments were protected during the entire process. The cutting block was then removed. Any remaining bone and osteophytes were removed from the femur with a Ronguer. Attention was then directed to the tibia. The remaining ACL was removed with a Ronguer, and the tibia was then gently subluxed forward with a large bent knee retractor. Any remaining menisci were excised. The posterior lateral corner was cauterized in order to coagulate the lateral geniculate artery. The extra medullary tibial cutting guide was then placed, set for the appropriate rotation, slope, and depth of resection. The proximal tibia cutting guide was then pinned in place. Proximal tibia was then cut and sized. A curved osteotome was then used to remove any posterior osteophytes from the distal femur. The femoral trial was placed. The box drill guide was used to remove the intracondylar femoral bone. The box trial was then placed. The tibial trial was placed with the appropriate-sized insert. The knee was able to fully extend and flex to 130 and was stable throughout all range of motion. The knee was t hen extended and the patella was everted. Patella was then measured, and then using an osteotomy guide, the patella was cut at the appropriate level. The patellar component was sized. The patellar drill guide was placed and the patella was drilled. The patella trial was then placed. The knee was then taken through range of motion with the patella trial and the patella tracked normally using the no thumbs technique. The patella trial was then removed. The knee was then flexed and lug holes were drilled through the femoral trial and the femoral trial was then removed. The tibial was then re-exposed, and the tibial broach guide was then pinned in place after it was set for the appropriate rotation to allow for the most coverage without overhang. The tibia was then reamed and broached. The femoral canal was plugged with autologous bone. The cut surfaces of bone were then irrigated with pulsatile lavage. The knee was also irrigated with Irrisept solution. The components were then opened, the cement was mixed. Cement was placed on the backside of the femoral, tibial, and patellar components. Cement was then applied to the tibial surface and pressurized into the surface using finger pressurization technique. The tibial component was then applied and excess cement was removed after it was impacted securely noted to be flush with the cut surface. In similar fashion, the cement was applied to the cut femoral surface, pressurized and using finger pressurization the component was impacted in place. Excess cement was removed. The polyethylene spacer was then implanted and locked into position. Patellar component was then applied in a similar technique and the patellar clamp was used to hold patella in place while the cement hardened. The knee was held in full extension while the cement hardened. Once the cement had fully hardened, the knee was reinspected. Any other cement extrusion was removed the final range of motion testing showed range of motion from 0-130 with excellent stability, both medial and laterally and appropriate alignment of the leg. Patella tracked normally. After the cemented hardened, the tourniquet was released and hemostasis was obtained. A second gram of transexamic acid was given intravenously. The knee was again irrigated. The knee was again taken through range of motion and found to be stable throughout all range of motion of 0-130, and the patella tracked normally. The fascia was then closed with 0 Vicryl followed by #2 strata fix suture. The subcutaneous tissue was closed with 3-0 Vicryl and 3-0 strata fix. Exofin glue was used for the skin and placed with the knee in flexion. After the glue had dried, and Optafoam silver impregnated dressing was applied. A lightly compressive dressing was applied using web roll and Keny wrap. Patient was then transferred to the stretcher and taken to recovery room in stable condition. Sponge and needle counts were correct. The entry level administrative assistant DARRYN Chappell was required due the complexity surgery and the need for a skilled surgical lead. She assisted in positioning, draping, retraction, and closure of the wound.
--- NOTE | 2023-05-18 08:31 | P.ANPRN ---
Procedure Note - Anesthesia - Nerve Block Performed Right Adductor Canal Infusion Time Out Performed: Yes (0634) Date of Procedure: 05/18/23 Procedure Start Time: 06:35 Procedure Stop Time: 06:50 Location of Patient: PreOp Indication: Acute Post-Operative Pain, Requested by Surgeon Sedation Type: Sedate with meaningful contact maintained Preparation: Sterile Prep, Sterile Dressing Position: Supine Catheter: Indwelling Needle Types: Pajunk Needle Gauge: 21 Ultrasound used to visualize needle placement: Yes Ultrasound used to observe medication spread: Yes Injectate: 0.5% Ropivacaine (see comment for volume) (20 mL of block solution containing 10 ML of 0.5% ropivacaine mixed with 10 ML of preservative-free normal saline) Blood Aspirated: No Pain Paresthesia on Injection Noted: No Resistance on Injection: Normal Image Stored and Saved: Yes Events: Uneventful and Well Tolerated
--- NOTE | 2023-05-18 08:32 | P.ANPRN ---
Procedure Note - Anesthesia - Nerve Block Performed Right iPack Single Time Out Performed: Yes (0634) Date of Procedure: 05/18/23 Procedure Start Time: 06:35 Procedure Stop Time: 06:50 Location of Patient: PreOp Indication: Acute Post-Operative Pain, Requested by Surgeon Sedation Type: Sedate with meaningful contact maintained Preparation: Sterile Prep, Sterile Dressing Position: Supine Needle Types: Pajunk Needle Gauge: 21 Ultrasound used to visualize needle placement: Yes Ultrasound used to observe medication spread: Yes Injectate: 0.5% Ropivacaine (see comment for volume) (20 mL of block solution containing 10 ML of 0.5% ropivacaine mixed with 10 ML of preservative-free normal saline) Blood Aspirated: No Pain Paresthesia on Injection Noted: No Resistance on Injection: Normal Image Stored and Saved: Yes Events: Uneventful and Well Tolerated
[2023-05-18 08:59] VITALS: TEMP 97
[2023-05-18] MEDS: ROPIVACAINE 0.75% 1,100 MG, SODIUM CHLORIDE 0.9% 500 ML 403 ML, EMPTY PAIN BALL 1 EACH MISCELLANE PRN (09:10)
--- NOTE | 2023-05-18 09:44 | XR ---
EXAMINATION TYPE: XR knee limited RT DATE OF EXAM: 05/18/2023 9:26 AM CLINICAL INDICATION:Female, 72 years old with history of Evaluation for Postop abnormality and alignm ent; [facility] COMPARISON: None. TECHNIQUE: XR knee limited RT; examined in Frontal, lateral and oblique projections. FINDINGS: Status post total knee arthroplasty changes with hardware in appropriate alignment and in tact. No evidence of fracture. Subcutaneous lucencies and lucencies within the joint consistent with surgical changes. IMPRESSION: Status post total knee arthroplasty changes with hardware intact and appropriate alignment. No fractu res identified.
[2023-05-18] MEDS: HYDROcodone/APAP 7.5-325MG 1 EACH TAB PO ONE (10:19)
[2023-05-18 10:37] VITALS: RESP 16
[2023-05-18] MEDS: ceFAZolin 10 GM VIAL IVPB ONE (11:17)
[2023-05-18 11:38] VITALS: BP 130/83; PULSE 75
--- NOTE | 2023-05-19 09:57 | P.PN ---
Progress Note - Text Progress Note Date: 05/19/23 patient was seen and evaluated at bedside. Status post postoperative day 1 for Right total knee arthroplasty patient had adductor canal catheter for postop pain control. Patient rated pain at rest 4 out of 10 in severity. Patient describes pain is aching, throbbing type on the sides of the knee and back of the knee. Patient started walking with support. With activity patient pain levels are 6-7 out of 10 in severity. With the help of oral pain medications pain levels are tolerable. Patient denied any weakness/ numbness in lower extremities. patient denied any fever, pain over the catheter site. He is complaining of difficulty urinating. He had similar issues with narcotic the past. Physical exam: Patient vital signs stable Patient is alert awake oriented 3 responding to all questions appropriately Examination of the catheter site showed dressing intact, no leaking fluid around the catheter, no redness, no tenderness over the catheter insertion area. plan: status post postoperative day 1 for Right total knee arthroplasty with addu ctor canal catheter for pain control. Patient was discussed to continue the medication at the rate of 8 mL per hour until the pump is completely empty and instructed the patient how to discontinue the catheter. Discussed with RN to change Thurman to Percocet after discussed with primary team.
== END | disposition home health service (06) ==
LOC: OR 05:34
PROVIDERS: ATTEND Orthopaedic Surgery
DX: M17.11 Unilateral primary osteoarthritis, right knee (principal); M21.061 Valgus deformity, not elsewhere classified, right knee
CPT/HCPCS: 97162; 64999; 64448; 73560; 27447; C1713; C1776; C1751; J2250; J0330; J1100; J0690 ×2; J2405; J2001; J3010; J1170; J2795 ×2; J2704

== ENCOUNTER → 2023-10-13 | Outpatient (CLI) | payer MEDICARE, OTHER ==
[2023-10-13 10:58] LABS: ALT 15 U/L (8-44); AST 24 U/L (13-35); Albumin 4.7 g/dL (3.8-4.9); Albumin/Globulin Ratio 1.68 Ratio (1.60-3.17); Alkaline Phosphatase 80 U/L (41-126); Calcium 10.3 mg/dL (8.7-10.3); Chloride 101 mmol/L (96-109); Chol/HDL Ratio 2.56 Ratio; Globulin 2.8 g/dL (1.6-3.3); Glucose 97 mg/dL (70-110); LDL Cholesterol,Calculated 130.5 mg/dL (0.0-131.0); Potassium 4.6 mmol/L (3.5-5.5); Sodium 139 mmol/L (135-145); Total Bilirubin 0.5 mg/dL (0.3-1.2); Total Protein 7.5 g/dL (6.2-8.2); VLDL Calculation 13.44 mg/dL (5.00-40.00)
[2023-10-13 11:00] LABS: Basophils # (A) 0.04 X 10*3/uL (0.00-0.10); Basophils % (A) 0.7 %; Eosinophils % (A) 1.7 %; HCT 42.1 % (37.2-46.3); HGB 13.8 g/dL (12.0-15.0); Lymphocytes # (A) 0.62 X 10*3/uL (0.90-5.00); Lymphocytes % (A) 10.7 %; MCH 31.4 pg (27.0-32.0); MCHC 32.8 g/dL (32.0-37.0); MCV 95.9 FL (80.0-97.0); Mean Platelet Volume 9.7 FL (9.5-12.2); Monocytes # (A) 0.33 X 10*3/uL (0.20-1.00); Monocytes % (A) 5.7 %; NRBC Per 100 WBC 0 X 10*3/uL (0.00-0.01); Platelet Count 347 X 10*3/uL (140-440); RBC 4.39 X 10*6/uL (4.10-5.20); RDW 12.8 % (11.5-14.5)
== END | disposition home or self-care (01) ==
LOC: LABWHC1 07:06
PROVIDERS: ATTEND Family Medicine
DX: I10 Essential (primary) hypertension (principal)
CPT/HCPCS: 36415; 80053; 80061; 84443; 85025

== ENCOUNTER → 2023-12-08 | Outpatient (CLI) | payer MEDICARE, OTHER ==
--- NOTE | 2023-12-08 23:23 | BD ---
EXAMINATION TYPE: Axial Bone Density DATE OF EXAM: 12/08/2023 CLINICAL HISTORY: 73 years old Female. ICD-10 CODE: M19.90 ARTHRITIS Height: 64.25in Weight: 160lb FRAX RISK QUESTIONS: History of Fracture in Adulthood: yes Secondary Osteoporosis: RISK FACTORS HISTORY OF: MEDICATIONS: EXAM MEASUREMENTS: Bone mineral densitometry was performed using the [employer] System. Bone mineral density as measured about the Lumbar spine is: ----- L1-L4(G/cm2): 1.412 T Score Values are as follows: ----- L1: 1.3 ----- L2: 2.1 ----- L3: 2.8 ----- L4: 1.5 ----- L1-L4: 1.9 Z Score Values are as follows: ----- L1: 2.8 ----- L2: 3.6 ----- L3: 4.3 ----- L4: 2.9 ----- L1-L4: 3.4 First dexa at [facility] Bone mineral density about the R hip (g/cm2): 0.809 Bone mineral density about the L hip (g/cm2): 0.880 T Score values are as follows: -----R Neck: -1.8 -----L Neck: -1.4 -----R Total: -1.6 -----L Total: -1.0 Z Score values are as follows: -----R Neck: -0.1 -----L Neck: 0.3 -----R Total: -0.1 -----L Total: 0.4 First dexa at [facility] FRAX%s: The graph provided illustrates a 18.2% chance for a major osteoporotic fx and a 3.6% chance f or the hips probability for fx in 10 years time. IMPRESSION: Osteopenia (T Score between -2.5 and -1). There is slightly increased risk of fracture and the patient may be considered for treatment. Re-Screen 2-5 years. NOTE: T-SCORE=SD OF THE YOUNG ADULT MEAN. [facility], Workstation: [id number], 12/08/2023 11:21 PM
--- NOTE | 2023-12-09 22:59 | MM ---
Reason for Exam: Screening (asymptomatic). Patient History: Menarche at age 12. Patient has no children. Postmenopausal. Cyst Aspiration on the Left side. Risk Values: Malka 5 year model risk: 2.0%. NCI Lifetime model risk: 4.8%. Tissue Density: The breasts are heterogeneously dense, which may obscure small masses. Findings: Analyzed By CAD. The pattern is symmetrical. Vascular calcifications present bilaterally. There are some scattered benign punctate and coarse calcifications. Focal asymmetry is outer right breast. Short-term follow-up in 6 months can be performed Left breast:No suspicious groups of microcalcifications, spiculated or lobular masses, architectural distortion or other secondary signs of malignancy are mammographically apparent. Overall Assessment: Probably benign, BI-RAD 3 Management: Diagnostic Mammogram of the right breast in 6 months. A negative mammogram report should not preclude additional follow up of suspicious palpable abnormalities. Patient should continue monthly self breast exam. A clinical breast exam by your physician is recommended on an annual basis and results should be correlated with mammographic findings. Note on Malka scores and lifetime risk: 1. A Malka score greater than 3% is considered moderate risk. If this is the case, consider specialist referral to assess eligibility for a risk reducing agent. 2. If overall lifetime risk for the development of breast cancer is 20% or higher, the patient may qualify for future screening with alternating mammogram and breast MRI. [facility], , 12/09/2023 10:56 PM. Electronically signed and approved by: Bruno Ricardo D.O. Radiologis
== END | disposition home or self-care (01) ==
LOC: RADMAMWWP 06:56
PROVIDERS: ATTEND Internal Medicine
DX: Z12.31 Encounter for screening mammogram for malignant neoplasm of breast (principal); M85.89 Other specified disorders of bone density and structure, multiple sites; N64.89 Other specified disorders of breast; R92.333 Mammographic heterogeneous density, bilateral breasts; R92.1 Mammographic calcification found on diagnostic imaging of breast; M19.90 Unspecified osteoarthritis, unspecified site; Z78.0 Asymptomatic menopausal state
CPT/HCPCS: 77063; 77067; 77080

== ENCOUNTER → 2024-02-12 | Outpatient (CLI) | payer MEDICARE, OTHER ==
--- NOTE | 2024-02-12 15:21 | US ---
EXAMINATION TYPE: US venous doppler duplex LE LT DATE OF EXAM: 02/12/2024 3:12 PM COMPARISON: NONE CLINICAL INDICATION: Female, 73 years old with history of M25.472 EFFUSION M79.662 PAIN IN LLE M79.89 SOFT T; swelling in left leg. No hx of DVT, not on blood thinners, TECHNIQUE: The lower extremity deep venous system is examined utilizing real time linear array sonog cyndy with graded compression, color doppler sonography, and spectral doppler. SIDE PERFORMED: Left FINDINGS: VESSELS IMAGED: Common Femoral Vein Deep Femoral Vein Greater Saphenous Vein * Femoral Vein Popliteal Vein Small Saphenous Vein * Proximal Calf Veins (* superficial vessels) Left Leg: Negative for DVT, Color Doppler imaging shows patency of the vessels. Spectral waveforms a re within normal limits. IMPRESSION: No ultrasound evidence for deep venous thrombosis. [facility], , 02/12/2024 3:19 PM
== END | disposition home or self-care (01) ==
LOC: RADUSWWP 14:40
PROVIDERS: ATTEND Podiatrist Foot & Ankle Surgery
DX: M25.472 Effusion, left ankle (principal); M79.89 Other specified soft tissue disorders; M79.662 Pain in left lower leg

== ENCOUNTER → 2024-02-16 | Outpatient (CLI) | payer MEDICARE, OTHER ==
[2024-02-16 15:20] LABS: C Reactive Protein 1.6 mg/dL (0.00-0.80); Uric Acid 6.3 mg/dL (2.9-7.7)
[2024-02-16 16:36] LABS: HCT 40.9 % (37.2-46.3); HGB 13.2 g/dL (12.0-15.0); MCH 31.6 pg (27.0-32.0); MCHC 32.3 g/dL (32.0-37.0); MCV 97.8 FL (80.0-97.0); Mean Platelet Volume 9.5 FL (9.5-12.2); NRBC Per 100 WBC 0 X 10*3/uL (0.00-0.01); Platelet Count 380 X 10*3/uL (140-440); RBC 4.18 X 10*6/uL (4.10-5.20); RDW 12.7 % (11.5-14.5); WBC 5.85 X 10*3/uL (4.50-10.00)
[2024-02-16 16:37] LABS: Basophils # (A) 0.03 X 10*3/uL (0.00-0.10); Basophils % (A) 0.5 %; Eosinophils # (A) 0.18 X 10*3/uL (0.04-0.35); Eosinophils % (A) 3.1 %; Lymphocytes # (A) 0.76 X 10*3/uL (0.90-5.00); Monocytes # (A) 0.33 X 10*3/uL (0.20-1.00); Monocytes % (A) 5.6 %; Neutrophils # (A) 4.54 X 10*3/uL (1.80-7.70); Neutrophils % (A) 77.6 %
[2024-02-16 18:28] LABS: Erythrocyte Sedimentation Rate 19 mm/Hr (0-30)
== END | disposition home or self-care (01) ==
LOC: LABWHC1 07:12
PROVIDERS: ATTEND Podiatrist Foot & Ankle Surgery
DX: M10.472 Other secondary gout, left ankle and foot (principal); B99.9 Unspecified infectious disease
CPT/HCPCS: 36415; 84550; 85025; 85652; 86140

== ENCOUNTER → 2024-07-08 | Outpatient (CLI) | payer MEDICARE, OTHER ==
--- NOTE | 2024-07-08 07:30 | MM ---
Reason for Exam: Follow-up at short interval from prior study. Last screening mammogram was performed 7 month(s) ago. Patient History: Menarche at age 12. Patient has no children. Postmenopausal. Cyst Aspiration on the Left side. Risk Values: Malka 5 year model risk: 2.0%. NCI Lifetime model risk: 4.5%. Prior Study Comparison: 12/08/2023 Bilateral MG 3D screening mammo w/cad, [facility]. Tissue Density: Right: The breasts are heterogeneously dense, which may obscure small masses. Findings: Analyzed By CAD. There is a stable appearing 8 mm density in the outer margin the right breast. Compression images demonstrate partial dispersement. Benign-appearing calcifications. Overall Assessment: Incomplete: need additional imaging evaluation, BI-RAD 0 Management: Diagnostic Breast Ultrasound of the right breast. . Results were given to the patient verbally at the time of exam. Patient should continue monthly self-breast exams. A clinical breast exam by your physician is recommended on an annual basis. This exam should not preclude additional follow-up of suspicious palpable abnormalities. Note on Malka scores and lifetime risk: 1. A Malka score greater than 3% is considered moderate risk. If this is the case, consider specialist referral to assess eligibility for a risk reducing agent. 2. If overall lifetime risk for the development of breast cancer is 20% or higher, the patient may qualify for future screening with alternating mammogram and breast MRI. [facility], , 07/08/2024 7:28 AM. Electronically signed and approved by: Tonio Flores M.D. Radiologis
--- NOTE | 2024-07-08 07:53 | USB ---
Reason for Exam: Additional evaluation requested from abnormal screening. Patient History: Menarche at age 12. Patient has no children. Postmenopausal. Cyst Aspiration on the Left side. Risk Values: Malka 5 year model risk: 2.0%. NCI Lifetime model risk: 4.5%. Technique: Method: Targeted. Prior Study Comparison: 12/08/2023 Bilateral MG 3D screening mammo w/cad, [facility]. Findings: The upper outer quadrant of the right breast, the axilla of the right breast and the retroareolar of the right breast were scanned. A US of overlying the 9:00- 12:00 position of the breast and retro-areolar region were reviewed. No solid or cystic masses are identified.. Overall Assessment: Probably benign, BI-RAD 3 Management: Screening Mammogram of both breasts in 6 months. A clinical breast exam by your physician is recommended on an annual basis and results should be correlated with mammographic findings. This exam should not preclude additional follow-up of suspicious palpable abnormalities. Results were given to the patient verbally at the time of exam. [facility], , 07/08/2024 7:50 AM. Electronically signed and approved by: Tonio Flores M.D. Radiologis
== END | disposition home or self-care (01) ==
LOC: RADMAMWWP 07:03
PROVIDERS: ATTEND Internal Medicine
DX: R92.8 Other abnormal and inconclusive findings on diagnostic imaging of breast (principal); R92.331 Mammographic heterogeneous density, right breast; R92.1 Mammographic calcification found on diagnostic imaging of breast; Z78.0 Asymptomatic menopausal state
CPT/HCPCS: 77065; 76642; G0279; 77061